=== PATIENT | male | born 1985 | race Native Hawaiian/Other Pacific Islander ===

== ENCOUNTER 2019-01-31 14:00 | Outpatient (RCR) | payer OTHER, SELFPAY ==
[2018-10-10 08:46] VITALS: BP 120/86; BP 122/88; RESP 14; O2SAT 97; BMI 32.3
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
--- NOTE | 2019-03-05 14:12 | PR.DCNOTE ---
Current Diagnoses Traumatic pneumothorax, initial encounter (01/31/19) Visit Care Team Role Provider Type Ravin Jefferson Attending Provider Non-Staff Specialty: Medical Address: [facility] [address], [place], [address] Fax: Email: Pulmonary Rehab Discharge Evaluation MO Education Start: 10/09/18 16:25 Freq: Status: Active Protocol: Document 11/12/18 15:24 [facility] (Rec: 11/12/18 15:25 [facility] [id number]) MO Education Education Pt atteneded Education today with the [employer]. Subjects covered, Labels/Sugars and Salts. MO Pulmonary Rehab. DC Assessment Start: 10/09/18 16:25 Freq: Status: Active Protocol: Document 03/05/19 13:54 [facility] (Rec: 03/05/19 14:12 [facility] [id number]) MO Exercise Discharge Assess Session 9 Type Treadmill,Bike METs (resistance level) 14.78BIKE 8.08TM % Improvement 17%TM 38% BIKE Interval Training Yes: 28.08 BIKE Shortness of Breath with Exercise Yes Desaturation with Exercise No Free Weight Yes: 5# 12R 2S Band Level Yes: #5 MO Nutrition DC Assessment Weight 102.058 kg Weight Goal Met No Goals Pt will continue focusing on weight loss Patient Ready Yes Reason Other (See comment below) Other Comment INSURANCE AUTHORIZATION MO Education DC Assessment Smoking Habit Update Smokes about the same as Initial Interested in Smoking Cessation No Undecided if/when to Quit Smoking Yes Not Interested in Smoking Cessation No Education Topics Normal Pulmonary Anatomy and Physiology,Chronic Lung Disease,Description and Interpretation of Medical Tests,Breathing Retraining, Bronchial Hygiene,Benefits of Exercise,Activities of Daily Living/Leisure Activities Education Target Goals Pt was educated on home exercise prescription,Pt educated on home resistance training,Pt educated on oxygen therapy for home,PT educated on medication's taken at home, Pt educated on PBL and relaxation techniques Pt achieved initial goal of passing [employer] physical fitness test MO Psychosocial DC Assessment Health Club/Other Yes: ACTIVE WILL USE BASE FACILITIES
== END 2019-01-31 14:05 ==
LOC: PUL 14:00
PROVIDERS: Visit Provider Student in an Organized Health Care Education/Training Program
DX: S27.0XXA Traumatic pneumothorax, initial encounter (principal)
CPT/HCPCS: G0237; G0238

== ENCOUNTER 2019-02-20 15:15 | Outpatient (RCR) | payer OTHER, SELFPAY ==
[2018-10-10 08:46] VITALS: BMI 32.3
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
--- NOTE | 2019-03-13 17:11 | PT-IP ANOTE ---
Called pt after 2nd no-show. Pt states he did not receive a reminder text. He was at work and unable to talk for long, but indicated he would call the front desk admin to schedule more appointments.
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
== END 2019-04-09 08:48 ==
LOC: PHYS 15:15
DX: S42.024D Nondisplaced fracture of shaft of right clavicle, subsequent encounter for fracture with routine healing (principal); R29.3 Abnormal posture
CPT/HCPCS: 97110; 97140; 97161